=== PATIENT | female | born 1990 | race African-American/Black ===

== ENCOUNTER 2019-05-10 08:08 | Day surgery (SDC) | payer OTHER ==
[~2019-05-10] VITALS: Ht 147.3 cm; Wt 45.9 kg
[~2019-05-10 08:08] MED LIST: BUPIVACAINE/EPI/PF 0.5% 30 ML VIAL ONE; LIDOCAINE 2%/EPI 1:200,000/PF 20 ML VIAL ONE; RINGERS SOLUTION,LACTATED 1,000 ML IV ONE
[2019-05-10] MEDS ORDERED: GLYCOPYRROLATE 0.2 MG/ML VIAL IM ONE (08:09)
[2019-05-10] MEDS ORDERED: ONDANSETRON HCL 4 MG/2 ML VIAL IVP ONE (08:09)
[2019-05-10] MEDS ORDERED: SUCCINYLCHOLINE CHLORIDE 20 MG/ML 10 ML VIAL IVP ONE (08:09)
[2019-05-10] MEDS ORDERED: PROPOFOL 1% 20 ML VIAL IVP ONE (08:09)
[2019-05-10] MEDS ORDERED: LIDOCAINE/PF 2% 5 ML SYRINGE IVP ONE (08:09)
[2019-05-10] MEDS ORDERED: MIDAZOLAM HCL 2 MG/2 ML VIAL IVP ONE (08:09)
[2019-05-10] MEDS ORDERED: FentaNYL CITRATE-PF 100 MCG/2 ML VIAL IVP ONE (08:09)
[2019-05-10] MEDS ORDERED: NEOSTIGMINE METHYLSULFATE 1 MG/ML 10 ML VIAL IVP ONE (08:09)
[2019-05-10] MEDS ORDERED: BUPIVACAINE HCL/PF 0.5% 30 ML VIAL ONE (08:24)
[2019-05-10] MEDS ORDERED: VANCOMYCIN HCL 750 MG in DEXTROSE 5%-WATER 250 ML IV ONE (08:30)
[2019-05-10] MEDS ORDERED: MIRT30 PO (09:17)
[2019-05-10] MEDS ORDERED: FLUO-191 PO (09:17)
[2019-05-10] MEDS ORDERED: LINA145C PO (09:17)
[2019-05-10] MEDS ORDERED: ACETAMINOPHEN 500 MG TABLET PO PRN (11:00)
[2019-05-10] MEDS ORDERED: IBUPROFEN 800 MG TABLET PO PRN (11:00)
[2019-05-10] MEDS ORDERED: ACETAMINOPHEN 1000 MG/ISO-OSM 100 ML IV ONE (12:15)
[2019-05-10] MEDS ORDERED: KETOROLAC TROMETHAMINE 30 MG/ML VIAL IVP ONE (12:15)
== END 2019-05-10 14:00 | disposition home or self-care (01) ==
LOC: SURGERY 08:08
PROVIDERS: ATTEND Surgery
DX: K43.6 Other and unspecified ventral hernia with obstruction, without gangrene (principal); F32.9 Major depressive disorder, single episode, unspecified; E46 Unspecified protein-calorie malnutrition; D64.9 Anemia, unspecified; Z98.890 Other specified postprocedural states; F17.210 Nicotine dependence, cigarettes, uncomplicated; Z79.899 Other long term (current) drug therapy
CPT/HCPCS: 49572; 84703; 88302; J0131; J0330; J1885; J2250; J2405; J2704; J3010; J3370; J3490 ×3; J7060; J7120

== ENCOUNTER 2024-02-03 21:51 | Emergency (ER) | payer OTHER ==
[~2024-02-03] VITALS: Ht 149.9 cm; Wt 47.7 kg
[~2024-02-03 21:51] MED LIST changes: -BUPIVACAINE/EPI/PF 0.5% 30 ML VIAL ONE; +FLUO-177 PO; -LIDOCAINE 2%/EPI 1:200,000/PF 20 ML VIAL ONE; +LINA145C PO; +MIRT-149 PO; -RINGERS SOLUTION,LACTATED 1,000 ML IV ONE
[2024-02-03 21:57] VITALS: TEMP 98.8; O2SAT 100
[2024-02-03] MEDS: ACETAMINOPHEN 500 MG TABLET PO ONE (22:56)
[2024-02-03] MEDS: IBUPROFEN 200 MG TABLET PO ONE (22:56)
[2024-02-03 23:11] VITALS: BP 114/78; PULSE 68; RESP 16
== END 2024-02-03 23:22 | disposition home or self-care (01) ==
LOC: EMS 21:51
DX: S80.12XA Contusion of left lower leg, initial encounter (principal); F17.210 Nicotine dependence, cigarettes, uncomplicated; Z88.1 Allergy status to other antibiotic agents; Z90.49 Acquired absence of other specified parts of digestive tract; Z79.899 Other long term (current) drug therapy; W22.8XXA Striking against or struck by other objects, initial encounter; Y93.89 Activity, other specified; Y92.89 Other specified places as the place of occurrence of the external cause; Y99.8 Other external cause status
CPT/HCPCS: 99284